=== PATIENT | female | born 1970 ===

== ENCOUNTER 2023-04-20 20:54 | Outpatient (REF) | payer OTHER, SELFPAY ==
[2023-04-20 21:14] LABS: Anion Gap 8.8 mmol/L (3-11); BUN 10 mg/dL (7-18); CO2 26.2 mmol/L (21.0-32.0); CREATININE 0.7 mg/dL (0.55-1.02); Calcium 9.3 mg/dL (8.5-10.1); Chloride 102 mmol/L (98-107); Glucose 88 mg/dL (74-106); Potassium 4.1 mmol/L (3.5-5.1); Sodium 137 mmol/L (136-145)
== END 2023-04-20 20:55 | disposition home or self-care (01) ==
LOC: NCHCN 20:54
PROVIDERS: Visit Provider Family Medicine
DX: Z00.00 Encounter for general adult medical examination without abnormal findings (principal); Z13.1 Encounter for screening for diabetes mellitus; Z13.228 Encounter for screening for other metabolic disorders
CPT/HCPCS: 80048; 83036

== ENCOUNTER 2024-11-21 20:39 | Outpatient (REF) | payer BC, SELFPAY ==
[2024-11-21 21:19] LABS: Anion Gap 6.3 mmol/L (3-11); BUN 23 mg/dL (7-18); CO2 29.7 mmol/L (21.0-32.0); CREATININE 0.9 mg/dL (0.55-1.02); Calcium 9.5 mg/dL (8.5-10.1); Chloride 102 mmol/L (98-107); Estimated GFR 75.97 (mL/min/1.73m2); Glucose 97 mg/dL (74-106); Potassium 4.4 mmol/L (3.5-5.1); Sodium 138 mmol/L (136-145)
== END 2024-11-21 20:40 | disposition home or self-care (01) ==
LOC: NCHCN 20:39
PROVIDERS: Visit Provider Family Medicine
DX: I10 Essential (primary) hypertension (principal)
CPT/HCPCS: 80048